=== PATIENT | female | born 1975 | race Caucasian/White ===

== ENCOUNTER → 2017-07-25 14:38 | Outpatient (CLI) | payer BC ==
[2014-07-09 10:36] VITALS: BMI 32.6
[~2017-07-25 14:38] MED LIST: PRENATAL COMPLE1 TAB PO
== END | disposition home or self-care (01) ==
LOC: D.CT 14:38
DX: R51 Headache (principal)

== ENCOUNTER → 2018-03-28 15:22 | Outpatient (CLI) | payer BC ==
[2014-07-09 10:36] VITALS: BMI 32.6
--- NOTE | 2018-04-06 12:22 | ST ---
PATIENT:CORTES ROWLEY MEDICAL RECORD: [id number] SEX: F LOCATION:[facility] ORDER #: ADMISSION DATE: 03/28/18 AGE OF PATIENT: 42 REFERRING PHYSICIAN: INTERPRETING PHYSICIAN: KALIE PRICE MD DATE OF SERVICE: 03/28/2018 Treadmill Stress Test Baseline ECG is normal. Exercised for 9 minutes of Andrei protocol, maximum heart rate 167 beats per minute, greater than 85% max predicted, no ECG changes for ischemia. No symptoms of ischemia. Normal blood pressure on his exercise. No arrhythmia is noted. Good exercise tolerance for age. TRANSINT:[id number] Voice Confirmation ID: [id number] DOCUMENT ID: [id number] KALIE PRICE MD at 1222 CC: [id number] DICTATION DATE: 03/31/18 [address] ATTENDANT: 04/01/18 0024 DEP CLI 03/28/[address] [id number]
== END | disposition home or self-care (01) ==
LOC: D.HCCARDIO 15:22
DX: I20.9 Angina pectoris, unspecified (principal)